=== PATIENT | female | born 1985 ===

== ENCOUNTER 2019-11-02 04:55 | Inpatient (IN) | payer OTHER ==
[2019-10-28 09:57] LABS: ABSOLUTE EOSINOPHILS # (AUTO) 0.1 10^3/uL (0.0-0.6); ABSOLUTE LYMPHOCYTES (AUTO) 1.4 10^3/uL (0.5-4.7); ABSOLUTE MONOCYTES (AUTO) 0.6 10^3/uL (0.1-1.4); ABSOLUTE NEUT (AUTO) 7.4 10^3/uL (1.7-8.2); BASOPHILS % (AUTO) 0.3 % (0-2); EOSINOPHILS % (AUTO) 0.7 % (0-6); HEMATOCRIT 37.8 % (36.0-47.0); MEAN CORPUSCULAR HEMOGLOBIN 31.5 pg (27.0-33.4); MEAN CORPUSCULAR HGB CONC 34.5 g/dL (32.0-36.0); MEAN CORPUSCULAR VOLUME 91 fl (80-97); MONOCYTES % (AUTO) 6.3 % (3-13); PLATELET COUNT 110 10^3/uL (150-450); RED BLOOD COUNT 4.14 10^6/uL (3.72-5.28); RED CELL DISTRIBUTION WIDTH 12.8 % (11.5-14.0); SEGMENTED NEUTROPHILS % (AUTO) 77.7 % (42-78); TOTAL CELLS COUNTED % (AUTO) 100 %; WHITE BLOOD COUNT 9.5 10^3/uL (4.0-10.5)
[2019-10-28 10:00] LABS: APPEARANCE,URINE SLIGHTLY-CLOUDY; BILIRUBIN,URINE NEGATIVE (NEGATIVE); COLOR,URINE YELLOW; GLUCOSE, URINE NEGATIVE (NEGATIVE); KETONES,URINE NEGATIVE (NEGATIVE); LEUKOCYTE ESTERASE,URINE NEGATIVE (NEGATIVE); NITRITE,URINE NEGATIVE (NEGATIVE); PROTEIN,URINE NEGATIVE (NEGATIVE); UROBILINOGEN,URINE NEGATIVE mg/dL (<2.0)
[2019-10-28 10:19] LABS: URINE AMPHETAMINES SCREEN NEGATIVE; URINE BARBITURATES SCREEN NEGATIVE; URINE BENZODIAZEPINES SCREEN NEGATIVE; URINE COCAINE SCREEN NEGATIVE; URINE MARIJUANA (THC) SCREEN NEGATIVE; URINE METHADONE SCREEN NEGATIVE; URINE PHENCYCLIDINE SCREEN NEGATIVE
[2019-11-02] MEDS ORDERED: RINGERS SOLUTION,LACTATED 1,000 ML IV PRN (05:23)
[2019-11-02] MEDS ORDERED: CEFAZOLIN 2 GM/D5W RTU 2 GM/50 ML RTUPB IV ONE (05:30)
[2019-11-02] MEDS ORDERED: RINGERS SOLUTION,LACTATED 1,000 ML IV ONE (05:30)
[2019-11-02] MEDS ORDERED: AZITHROMYCIN 500 MG in DEXTROSE 5%-WATER 250 ML IV ONE (06:00)
[2019-11-02] MEDS ORDERED: AZITHROMYCIN INJ 500 MG VIAL IV ONE (06:43)
[2019-11-02] MEDS ORDERED: INFLUENZA QUAD (6MOS+) 2019-20 VAC 0.5 ML SYR IM ONE (07:06)
[2019-11-02] MEDS ORDERED: CEFAZOLIN INJ 1 GM VIAL ONE (07:16)
[2019-11-02] MEDS ORDERED: PROPOFOL INJ 200 MG/20 ML VIAL IV ONE (07:36)
[2019-11-02] MEDS ORDERED: OXYTOCIN/NORMAL SALINE 20 UNIT/1,000 ML RTUINJ ONE ×2 (07:37→08:55)
[2019-11-02] MEDS ORDERED: MIDAZOLAM 2 MG/2 ML INJ ONE (07:37)
[2019-11-02] MEDS ORDERED: EPHEDRINE SULFATE INJ 50 MG/1 ML AMPULE ONE (07:37)
[2019-11-02] MEDS ORDERED: FENTANYL CITRATE INJ/PF 100 MCG/2 ML AMPUL ONE (07:37)
[2019-11-02] MEDS ORDERED: MEPERIDINE HCL/PF INJ 25 MG/1 ML DISP.SYRIN IV PRN (08:01)
[2019-11-02] MEDS ORDERED: DIPHENHYDRAMINE HCL 50 MG/ML VIAL IV PRN (08:01)
[2019-11-02] MEDS ORDERED: FENTANYL CITRATE INJ/PF 100 MCG/2 ML AMPUL IV PRN ×3 (08:01)
[2019-11-02] MEDS ORDERED: PROMETHAZINE HCL INJ 25 MG/1 ML VIAL IV PRN ×4 (08:01→08:28)
[2019-11-02] MEDS ORDERED: OXYCODONE-ACETAMINOPHEN 5-325 MG TABLET PO PRN ×4 (08:01→08:28)
[2019-11-02] MEDS ORDERED: DIPH/PERTUSS(ACELL)/TETANUS VAC/PF 0.5 ML SYR (>=10YO) IM PRN ×2 (08:27→08:28)
[2019-11-02] MEDS ORDERED: OXYTOCIN/NORMAL SALINE 20 UNIT/1,000 ML RTUINJ IV PRN (08:27)
[2019-11-02] MEDS ORDERED: MEASLES,MUMPS&RUBELLA VACC/PF 0.5 ML VIAL SUBCUT PRN ×2 (08:27→08:28)
[2019-11-02] MEDS ORDERED: SIMETHICONE 80 MG TAB.CHEW PO PRN ×2 (08:27→08:28)
[2019-11-02] MEDS ORDERED: ACETAMINOPHEN 325 MG TABLET PO PRN ×2 (08:27→08:28)
[2019-11-02] MEDS ORDERED: MORPHINE SULFATE 10 MG/ML INJ IM PRN (08:28)
[2019-11-02] MEDS ORDERED: OXYTOCIN/NORMAL SALINE 1,000 ML IV PRN (08:28)
[2019-11-02] MEDS ORDERED: ACETAMINOPHEN 1,000 MG/100 ML RTUPB IV PRN (08:28)
--- NOTE | 2019-11-02 08:32 | PDOC DELIVERY SUMMARY ---
Delivery Summary - Maternal Hx : II Hx # Term Pregnancies: 1 Hx # Pregnancies: 0 Hx Total # of Abortions (Sponateous & Elective): 0 GERSON: 11/05/19 Gestational Age: 39.4 Ruptured Membranes: AROM Fluids: Clear - Delivery Labor: Not In Labor Heart Rate Monitoring: Done Pre-Operatively Support Person Present: Yes Location: OR : Scheduled Placenta: Within Normal Limits Number of Vessels (Cord): 3 Delivery of Placenta Date: 11/02/19 Estimated Blood Loss: 800cc - Medications Type of Anesthesia:: Spinal
--- NOTE | 2019-11-02 08:34 | Operative Report ---
Operative Report DATE OF SURGERY: 11/02/19 PREOPERATIVE DIAGNOSIS: IUP at term prior section POSTOPERATIVE DIAGNOSIS: Same OPERATION: Repeat low transverse section delivery of viable male infant SURGEON: ERLIN LUNA ANESTHESIA: Spinal TISSUE REMOVED OR ALTERED: Placenta COMPLICATIONS: None ESTIMATED BLOOD LOSS: 800 cc PROCEDURE: The patient was taken to the operating room where spinal anesthesia was obtained and found to be adequate. She was then prepped and draped in the normal sterile fashion and placed in the dorsal supine position with a leftward tilt. A Pfannenstiel skin incision was then made and carried through to the underlying layers of the fascia with the scalpel. The fascia was incised in the midline and the incision extended laterally with the Be scissors. The superior aspect of the fascial incision was then grasped with Rogers clamps elevated and the underlying rectus muscles dissected off bluntly. Attention was then turned to the inferior aspect of the fascial incision which in a similar fashion was grasped, tented up with Nelia clamps, and the rectus muscles d issected off bluntly. The rectus muscles were then in the midline and the peritoneum at the amount identified and entered bluntly. The peritoneal incision was then extended superiorly and inferiorly with good visualization of the bladder. [The bladder blade was inserted and the vesicouterine peritoneum identified grasped with [place]onian pickups and entered sharply with the Metzenbaum scissors. His incision was then extended laterally with the Metzenbaum scissors and a bladder flap created digitally. The bladder blade was then reinserted and the lower uterine segment incised in a transverse fashion with the scalpel. The uterine incision was then extended bluntly. The bladder blade was removed and the 's head was delivered from cephalic presentation atraumatically. The nose and mouth were suctioned and the cord doubly clamped and cut. And the infant was handed off to waiting pediatricians. The placenta was then delivered manully and the uterus exteriorized and cleared of all clots and debris. The uterine incision was then repaired with 1-0 Vicryl in a running locked fashion. A second layer of the same suture was used to obtain hemostasis via imbrication of the initial layer. The uterus was returned to the patient's abdomen. The gutters were cleared of all clots and debris. All operative sites were noted to be hemostatic. The fascia was reapproximated with 0 Vicryl in a running fashion from each lateral edge to the midline. The patient tolerated the procedure well. Sponge lap needle and instrument counts are correct -2. 2 g of Ancef were given prior to skin incision. The patient was taken to the recovery area awake and in stable condition.
[2019-11-02] MEDS: FENTANYL CITRATE INJ/PF 100 MCG/2 ML AMPUL ONE ×2 (09:51→10:00)
[2019-11-02] MEDS ORDERED: DOCUSATE SODIUM 100 MG CAPSULE PO SCH (10:00)
[2019-11-02] MEDS ORDERED: DSS PO SCH (10:00)
[2019-11-02] MEDS ORDERED: PRENATAL VITAMIN W DHA CAPSULE PO SCH (10:00)
[2019-11-02] MEDS ORDERED: PRENAT PO SCH (10:00)
[2019-11-02] MEDS ORDERED: IRON FUM PO SCH (10:00)
[2019-11-02] MEDS ORDERED: FOLIC PO SCH (10:00)
[2019-11-02] MEDS: OXYCODONE-ACETAMINOPHEN 5-325 MG TABLET PO PRN ×3 (10:48→20:55)
[2019-11-02] MEDS: DOCUSATE SODIUM 100 MG CAPSULE PO SCH ×2 (11:13→17:17)
[2019-11-02] MEDS: PRENATAL VITAMIN W DHA CAPSULE PO SCH (11:13)
[2019-11-02] MEDS ORDERED: KETOROLAC TROMETHAMINE INJ/PF 30 MG/1 ML SDV IV SCH ×2 (12:00→14:00)
[2019-11-02] MEDS ORDERED: PHENYLEPHRINE HCL INJ/PF 10 MG/1 ML SDV ONE (12:44)
[2019-11-02] MEDS: KETOROLAC TROMETHAMINE INJ/PF 30 MG/1 ML SDV IV SCH (19:54)
[2019-11-03] MEDS: OXYCODONE-ACETAMINOPHEN 5-325 MG TABLET PO PRN ×4 (02:02→19:32)
[2019-11-03] MEDS: KETOROLAC TROMETHAMINE INJ/PF 30 MG/1 ML SDV IV SCH (03:14)
[2019-11-03 06:25] LABS: HEMATOCRIT 34.6 % (36.0-47.0); HEMOGLOBIN 11.8 g/dL (12.0-15.5); MEAN CORPUSCULAR HEMOGLOBIN 31.7 pg (27.0-33.4); MEAN CORPUSCULAR HGB CONC 34.2 g/dL (32.0-36.0); MEAN CORPUSCULAR VOLUME 93 fl (80-97); RED BLOOD COUNT 3.73 10^6/uL (3.72-5.28); RED CELL DISTRIBUTION WIDTH 12.8 % (11.5-14.0); WHITE BLOOD COUNT 11.3 10^3/uL (4.0-10.5)
[2019-11-03 06:59] LABS: PLATELET COUNT 95 10^3/uL (150-450)
--- NOTE | 2019-11-03 09:34 | PDOC PROGRESS REPORT ---
Subjective-OB Progress Note for:: 11/03/19 Subjective: Pt doing well, no concerns. She reports light bleeding, reg diet and voiding without difficulty, denies flatus. Physical Exam (OB) Vital Signs: Temp Pulse Resp BP Pulse Ox 97.8 F 76 14 99/59 L 100 11/03/19 07:27 11/03/19 07:27 11/03/19 07:27 11/03/19 07:27 11/03/19 07:27 Intake & Output 11/02/19 11/03/19 11/04/19 06:59 06:59 06:59 Intake Total 4950 Output Total 5728 Balance -778 Weight 60.781 kg - Dressing Removed: Yes Incision: Open - Lochia Lochia Amount: Moderate 25-50 ml Lochia Color: Rubra/Red - Abdomen Description: Soft, Round Fundal Description: Firm, Midline Fundal Height: u/u - u/2 Objective-Diagnostic Laboratory: 11/03/19 06:03 11/03/19 06:03 WBC 11.3 H RBC 3.73 Hgb 11.8 L Hct 34.6 L MCV 93 MCH 31.7 MCHC 34.2 RDW 12.8 Plt Count 95 L Assessment and Plan(PN) - Assessment and Plan (1) S/P repeat low transverse Is this a current diagnosis for this admission?: Yes (2) Thrombocytopenia Is this a current diagnosis for this admission?: Yes - Time Spent with Patient Time with patient: Less than 15 minutes Medications reviewed and adjusted accordingly: Yes - Disposition Anticipated Discharge: Home Within: within 24 hours
[2019-11-03] MEDS: PRENATAL VITAMIN W DHA CAPSULE PO SCH (10:10)
[2019-11-03] MEDS: DOCUSATE SODIUM 100 MG CAPSULE PO SCH ×2 (10:10→18:23)
[2019-11-03] MEDS ORDERED: IBUPROFEN 800 MG TABLET PO SCH (12:00)
[2019-11-04] MEDS: OXYCODONE-ACETAMINOPHEN 5-325 MG TABLET PO PRN ×3 (00:27→11:04)
[2019-11-04 07:11] LABS: ABSOLUTE EOSINOPHILS # (AUTO) 0.1 10^3/uL (0.0-0.6); ABSOLUTE LYMPHOCYTES (AUTO) 1.1 10^3/uL (0.5-4.7); ABSOLUTE MONOCYTES (AUTO) 0.5 10^3/uL (0.1-1.4); ABSOLUTE NEUT (AUTO) 8.5 10^3/uL (1.7-8.2); BASOPHILS % (AUTO) 0.2 % (0-2); EOSINOPHILS % (AUTO) 1.1 % (0-6); HEMOGLOBIN 11.8 g/dL (12.0-15.5); LYMPHOCYTES % (AUTO) 10.8 % (13-45); MEAN CORPUSCULAR HGB CONC 34.6 g/dL (32.0-36.0); MEAN CORPUSCULAR VOLUME 92 fl (80-97); MONOCYTES % (AUTO) 5.2 % (3-13); PLATELET COUNT 101 10^3/uL (150-450); RED BLOOD COUNT 3.68 10^6/uL (3.72-5.28); RED CELL DISTRIBUTION WIDTH 12.9 % (11.5-14.0); SEGMENTED NEUTROPHILS % (AUTO) 82.7 % (42-78); TOTAL CELLS COUNTED % (AUTO) 100 %; WHITE BLOOD COUNT 10.3 10^3/uL (4.0-10.5)
[2019-11-04] MEDS: DOCUSATE SODIUM 100 MG CAPSULE PO SCH (09:15)
[2019-11-04] MEDS: PRENATAL VITAMIN W DHA CAPSULE PO SCH (09:15)
--- NOTE | 2019-11-04 10:17 | PDOC DISCHARGE SUMMARY ---
Impression - Admit/DC Date/PCP Admission Date/Primary Care Provider: 11/02/19 04:55 Discharge Date: 11/04/19 - Discharge Diagnosis (1) S/P repeat low transverse Is this a current diagnosis for this admission?: Yes (2) Thrombocytopenia Is this a current diagnosis for this admission?: Yes - Additional Information Resuscitation Status: Full Code Discharge Diet: As Tolerated, Regular Discharge Activity: Activity As Tolerated, Balance Activity w/Rest, No Driving, No Lifting Over 10 Pounds, Pelvic Rest, No tub bath, Walk Frequently Prescriptions: Oxycodone HCl/Acetaminophen [Percocet 5-325 mg Tablet] 1 tab PO Q4HP PRN #20 tablet PRN Reason: For Pain Scale 3-5 Acetaminophen [Tylenol 325 mg Tablet] 650 mg PO Q4HP PRN #20 tablet PRN Reason: For Pain Scale 1-3 Docusate Sodium [Colace 100 mg Capsule] 100 mg PO BID #60 capsule Home Medications: Prenat 115/Iron Fum/Folic/Dss [ 19 Tablet] 1 each PO DAILY 10/28/19 Acetaminophen [Tylenol 325 mg Tablet] 650 mg PO Q4HP PRN #20 tablet 11/04/19 Docusate Sodium [Colace 100 mg Capsule] 100 mg PO BID #60 capsule 11/04/19 Oxycodone HCl/Acetaminophen [Percocet 5-325 mg Tablet] 1 tab PO Q4HP PRN #20 tablet 11/04/19 Results Laboratory Results: WBC 10.3 10^3/uL (4.0-10.5) 11/04/19 06:45 RBC 3.68 10^6/uL (3.72-5.28) L 11/04/19 06:45 Hgb 11.8 g/dL (12.0-15.5) L 11/04/19 06:45 Hct 34.0 % (36.0-47.0) L 11/04/19 06:45 MCV 92 fl (80-97) 11/04/19 06:45 MCH 32.0 pg (27.0-33.4) 11/04/19 06:45 MCHC 34.6 g/dL (32.0-36.0) 11/04/19 06:45 RDW 12.9 % (11.5-14.0) 11/04/19 06:45 Plt Count 101 10^3/uL (150-450) L 11/04/19 06:45 Lymph % (Auto) 10.8 % (13-45) L 11/04/19 06:45 [place] % (Auto) 5.2 % (3-13) 11/04/19 06:45 Eos % (Auto) 1.1 % (0-6) 11/04/19 06:45 Baso % (Auto) 0.2 % (0-2) 11/04/19 06:45 Absolute Neuts (auto) 8.5 10^3/uL (1.7-8.2) H 11/04/19 06:45 Absolute Lymphs (auto) 1.1 10^3/uL (0.5-4.7) 11/04/19 06:45 Absolute Monos (auto) 0.5 10^3/uL (0.1-1.4) 11/04/19 06:45 Absolute Eos (auto) 0.1 10^3/uL (0.0-0.6) 11/04/19 06:45 Absolute Basos (auto) 0.0 10^3/uL (0.0-0.2) 11/04/19 06:45 Seg Neutrophils % 82.7 % (42-78) H 11/04/19 06:45 Urine Color YELLOW 10/28/19 09:10 Urine Appearance SLIGHTLY-CLOUDY 10/28/19 09:10 Urine pH 6.0 (5.0-9.0) 10/28/19 09:10 Ur Specific [place] 1.020 10/28/19 09:10 Urine Protein NEGATIVE mg/dL (NEGATIVE) 10/28/19 09:10 Urine Glucose (UA) NEGATIVE mg/dL (NEGATIVE) 10/28/19 09:10 Urine Ketones NEGATIVE mg/dL (NEGATIVE) 10/28/19 09:10 Urine Blood NEGATIVE (NEGATIVE) 10/28/19 09:10 Urine Nitrite NEGATIVE (NEGATIVE) 10/28/19 09:10 Urine Bilirubin NEGATIVE (NEGATIVE) 10/28/19 09:10 Urine Urobilinogen NEGATIVE mg/dL (<2.0) 10/28/19 09:10 Ur Leukocyte Esterase NEGATIVE (NEGATIVE) 10/28/19 09:10 Urine WBC (Auto) 1 /HPF 10/28/19 09:10 Urine RBC (Auto) 1 /HPF 10/28/19 09:10 Urine Bacteria (Auto) TRACE /HPF 10/28/19 09:10 Squamous Epi Cells Auto 11 /HPF 10/28/19 09:10 Urine Mucus (Auto) FEW /LPF 10/28/19 09:10 Urine Ascorbic Acid NEGATIVE (NEGATIVE) 10/28/19 09:10 Urine Opiates Screen NEGATIVE 10/28/19 09:10 Urine Methadone Screen NEGATIVE 10/28/19 09:10 Ur Barbiturates Screen NEGATIVE 10/28/19 09:10 Ur Phencyclidine Scrn NEGATIVE 10/28/19 09:10 Ur Amphetamines Screen NEGATIVE 10/28/19 09:10 U Benzodiazepines Scrn NEGATIVE 10/28/19 09:10 Urine Cocaine Screen NEGATIVE 10/28/19 09:10 U Marijuana (THC) Screen NEGATIVE 10/28/19 09:10 Blood Type A POSITIVE 10/31/19 09:11 Antibody Screen NEGATIVE 10/31/19 09:11
[2019-11-04] MEDS ORDERED: MEDROXYPROGESTERONE ACET INJ 150 MG/1 ML VIAL IM ONE (11:00)
[2019-11-04 11:01] VITALS: BP 120/64
== END 2019-11-04 14:00 | disposition home or self-care (01) | DRG 787 ==
LOC: 2S 04:55
PROVIDERS: ADMIT Obstetrics & Gynecology Gynecology; ATTEND Obstetrics & Gynecology Gynecology
PROC: 10D00Z1 Extraction of Products of Conception, Low, Open Approach (ICD-10-PCS; principal; 2019-11-02 07:45)
DX: O34.211 Maternal care for low transverse scar from previous cesarean delivery (principal); O99.12 Other diseases of the blood and blood-forming organs and certain disorders involving the immune mechanism complicating childbirth; D69.6 Thrombocytopenia, unspecified; N85.8 Other specified noninflammatory disorders of uterus; Z3A.39 39 weeks gestation of pregnancy; Z37.0 Single live birth
CPT/HCPCS: 1961; 36415; 59025; 80307; 81001; 85025; 85027; 86850; 86900; 86901; 94799; J0456; J1050; J1885; J2250; J2270; J2370; J2590; J2704; J3010; J3490; J7060; J7120